=== PATIENT | female | born 1945 | race Caucasian/White ===

== ENCOUNTER 2019-07-26 15:22 | Outpatient (CLI) | payer MEDICARE, SELFPAY ==
--- NOTE | ~2019-07-26 | MM_ITS ---
EXAMINATION: MM screening emelina BI w yuly HISTORY: Screening mammogram TECHNIQUE: Craniocaudal and mediolateral oblique 3-D tomosynthesis images were obtained and synthetic 2-D images were generated. CAD analysis was submitted and interpreted. COMPARISON: 01/17/2018, 10/18/2016, 09/14/2015 bilateral digital screening mammogram examinations BREAST PARENCHYMAL COMPOSITION: The breasts are heterogeneously dense, which may obscure small masses . FINDINGS: There are scattered bilateral benign calcifications. There is no evidence of suspicious ma ss, calcification, or architectural distortion to suggest malignancy in either breast. There has been no suspicious interval change. IMPRESSION: 1. No mammographic evidence of malignancy. 2. Recommend routine screening mammography in one year. BI-RADS Category 2: Benign finding(s). Reviewed, dictated and finalized at location A.
== END 2019-07-26 15:23 | disposition home or self-care (01) ==
PROVIDERS: PCP Internal Medicine; Visit Provider Internal Medicine
DX: Z12.31 Encounter for screening mammogram for malignant neoplasm of breast (principal)
CPT/HCPCS: 77063; 77067

== ENCOUNTER 2019-10-11 08:31 | Emergency (ER) | payer MEDICARE, SELFPAY ==
--- NOTE | ~2019-10-11 | XR_ITS ---
EXAMINATION: XR hand RT min 3V DATE: 10/11/2019 08:58 INDICATION: Right hand swelling. TECHNIQUE: 3 views of right hand were obtained. COMPARISON: Right hand fourth digit radiographs 11/12/2013 FINDINGS: There is old fracture of scaphoid waist with nonunion. There is moderate osteoarthritis of lunate-capitate joint and distal radioulnar joint. There are loose bodies in the radiocarpal compartm ent. There is moderate osteoarthritis of triscaphe joint and severe osteoarthritis of first carpal me tacarpal joint. There is moderate osteoarthritis of second metacarpophalangeal joint and severe osteo arthritis of third metacarpophalangeal joint. There is mild osteoarthritis of fourth and fifth metaca rpophalangeal joints. There is severe osteoarthritis of most of the interphalangeal joints. IMPRESSION: 1. 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 2. Polyarticular osteoarthritis. 3. Loose bodies in the radiocarpal compartment. Reviewed, dictated and finalized at location B.
[2019-10-11 08:49] VITALS: BP 152/76; PULSE 79; RESP 18; TEMP 37; O2SAT 98
--- NOTE | 2019-10-11 08:55 | ED.UPPEXIN ---
HPI - Extremity Injury (Upper) General Chief Complaint: Extremity Injury, Upper Stated Complaint: Right Hand Pain Time Seen by Provider: 10/11/19 08:50 Source: patient Mode of arrival: ambulatory Limitations: no limitations History of Present Illness HPI narrative: Fidelina Jensen is a 74 yo female with a PMH of depression, high cholesterol, HTN, hypothyroid, seasonal allergies, who fell yesterday going down stairs and missed last step and fell hurting the R hand; mild swelling and bruising, able to move hand. 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 Related Data Home Medications Medication Instructions Recorded Confirmed escitalopram oxalate mg 10/11/19 fenofibrate mg 10/11/19 levothyroxine 10/11/19 meloxicam 10/11/19 metoprolol succinate PO 10/11/19 montelukast mg 10/11/19 simvastatin mg 10/11/19 triamterene-hydrochlorothiazid tablet 10/11/19 Allergies Allergy/AdvReac Type Severity Reaction Status Date / Time Penicillins Allergy Severe ITCHEY RASH Unverified 11/12/13 18:47 clindamycin Allergy Unknown Verified 09/03/18 11:20 erythromycin base Allergy Unknown Verified 09/03/18 11:21 gemifloxacin Allergy Unknown Verified 09/03/18 11:21 rosuvastatin Allergy Unknown Verified 09/03/18 11:20 Sulfa (Sulfonamide Allergy Unknown Verified 09/03/18 11:21 Antibiotics) valacyclovir Allergy Unknown Verified 09/03/18 11:21 EMYCIN Allergy Severe GI UPSET Uncoded 03/28/08 08:40 FACTIVE Allergy Severe HIVES Uncoded 03/28/08 08:40 Review of Systems Review of Systems: Narrative: CONSTITUTIONAL: Denies fever, chills, sweats. EYES: Denies visual changes, redness, discharge. ENT: Denies rhinorrhea, congestion, sore throat, otalgia. CARDIOVASCULAR: Denies chest pain, palpitations, edema. RESPIRATORY: Denies dyspnea, wheezing, cough GASTROINTESTINAL: Denies abdominal pain, nausea, vomiting, diarrhea. GENITOURINARY: Denies dysuria, hematuria, abnormal discharge SKIN: Denies rash or itching. NEUROLOGIC: Denies numbness, or focal weakness. PSYCHIATRIC: Denies anxiety or depression. Right hand pain and swelling after fall PMFSH Family History Family History Father Carcinoma of colon Mother Carcinoma of colon Other Diabetes mellitus Family history of allergic disorder Hypertension Social History Social History Smoking status: Never smoker Alcohol intake: never Comments At time of signature, I agree with nursing past medical, surgical, social and family history. There is no relevant family history pertinent to the presenting complaint. Exam Narrative: Exam Narrative: GENERAL: This is a well-nourished, well-developed patient, in mild distress. HEAD: normocephalic, atraumatic. EYES: PERRL. Sclera clear/white. Vision is grossly intact. EARS: External ears normal, a. Hearing grossly intact. NOSE: External nose normal without nasal discharge, nares without redness, no rhinorrhea. THROAT: Mucous membranes moist, NECK: Neck supple, CARDIOVASCULAR: Regular rate and rhythm without murmurs, gallops, or rubs. RESPIRATORY: Clear to auscultation. Breath sounds equal bilaterally. No wheezes, rales, or rhonchi. GASTROINTESTINAL: Abdomen soft, SKIN: warm, intact with no suspicious lesions or rash, good texture and turgor. NEURO: awake, alert, and oriented to person, place and time. There were no obvious focal neurologic abnormalities. Steady gait EXTREMITIES: Normal range of motion. Mild swelling in dorsum side right hand, mild ecchymosis, good finger opposition, good wrist flexion extension, intra-strength 5 /5 BACK: Nontender without deformity Course Course Emergency Course: X-ray right hand- results old scaphoid wrist fracture, polyarticular osteoarthritis and loose bodies in radiocarpal compartment with no acute fracture Vital Signs Vital signs: Vital Signs Temperature 98
== END 2019-10-11 09:22 | disposition home or self-care (01) ==
PROVIDERS: Emergency Provider Nurse Practitioner; PCP Internal Medicine
DX: S63.501A Unspecified sprain of right wrist, initial encounter (principal); S66.911A Strain of unspecified muscle, fascia and tendon at wrist and hand level, right hand, initial encounter; W10.9XXA Fall (on) (from) unspecified stairs and steps, initial encounter; F32.9 Major depressive disorder, single episode, unspecified; E78.00 Pure hypercholesterolemia, unspecified; I10 Essential (primary) hypertension; E03.9 Hypothyroidism, unspecified
CPT/HCPCS: 73130; 99213; G0463

== ENCOUNTER → 2020-05-20 14:39 | Outpatient (CLI) | payer MEDICARE, SELFPAY ==
--- NOTE | ~2020-05-20 | XR_ITS ---
XR hip RT min 2V DATE: 05/20/2020 16:32 INDICATION: Right hip pain TECHNIQUE: AP and lateral views of right hip COMPARISON: None FINDINGS: Diffuse osteopenia. No fracture or dislocation, avascular necrosis or bone destruction is evident. There is narrowing of the hip joint space consistent with osteoarthritis. IMPRESSION: Right hip osteoarthritic arthritis Osteopenia Reviewed, dictated and finalized at location B.
== END ==
PROVIDERS: PCP Internal Medicine; Visit Provider Internal Medicine
DX: M16.11 Unilateral primary osteoarthritis, right hip (principal); M85.851 Other specified disorders of bone density and structure, right thigh
CPT/HCPCS: 73502

== ENCOUNTER → 2021-05-03 11:32 | Outpatient (CLI) | payer MEDICARE, SELFPAY ==
--- NOTE | ~2021-05-03 | MM_ITS ---
EXAMINATION: MM screening emelina BI w yuly HISTORY: Screening TECHNIQUE: Craniocaudal and mediolateral oblique 3-D tomosynthesis images were obtained and synthetic 2-D images were generated. CAD analysis was submitted and interpreted. COMPARISON: Comparison to multiple prior studies sequentially, with oldest reviewed study dated 04/11. BREAST PARENCHYMAL COMPOSITION: The breasts are heterogenously dense, which may obscure small masses FINDINGS: There are benign bilateral breast calcifications many of which layer on the MLO views. Ther e is no evidence of suspicious mass, calcification, or architectural distortion to suggest malignancy in either breast. There has been no suspicious interval change. IMPRESSION: 1. No mammographic evidence of malignancy. 2. Recommend routine screening mammography in one year. BI-RADS Category 2: Benign finding(s). Reviewed, dictated and finalized at location A. IFICATION MANAGER
--- NOTE | ~2021-05-03 | US_ITS ---
. EXAMINATION: US renal BI DATE: 05/03/2021 12:02 INDICATION: Elevated serum creatinine. TECHNIQUE: Multiple ultrasound grayscale images of the kidneys were obtained. COMPARISON: None. FINDINGS: The right kidney measures 9.0 x 4.8 x 4.6 cm. The left kidney measures 12.1 x 6.3 x 5.3 cm. The kidne ys demonstrate normal parenchymal echogenicity. There is no hydronephrosis. The bladder is normal. IMPRESSION: 1. Normal kidneys. No hydronephrosis. Reviewed, dictated and finalized at location A. NG MACHINE TENDER CORK GASKET
== END ==
PROVIDERS: PCP Internal Medicine; Visit Provider Internal Medicine
DX: Z12.31 Encounter for screening mammogram for malignant neoplasm of breast (principal); R79.89 Other specified abnormal findings of blood chemistry
CPT/HCPCS: 76775; 77063; 77067

== ENCOUNTER 2021-12-13 10:04 | Outpatient (CLI) | payer MEDICARE, SELFPAY ==
--- NOTE | ~2021-12-13 | DEXA_ITS ---
Bone Density Report Name: JÚNIOR ROMERO Age: 76 Sex: Female Ethnicity: White Date of : 1945 Indication: postmenopausal; screening for osteoporosis; height loss; Referring Provider: MAGDA, MAGALI Paiz Study: Bone densitometry was performed. Exam Date: December 13, 2021 Accession number: [id number] Bone Density: Region BMD T-score Z-score Classification AP Spine(L1-L4) 1.212 1.5 3.9 Normal Femoral Neck (Left) 0.558 -2.6 -0.5 Osteoporosis Total Hip (Left) 0.780 -1.3 0.5 Osteopenia Femoral Neck (Right) 0.574 -2.5 -0.4 Osteoporosis Total Hip (Right) 0.765 -1.4 0.4 Osteopenia Total Hip Mean 0.773 -1.4 0.5 Osteopenia World Health Organization criteria for BMD impression classify patients as: Normal (T-score at or above -1.0), Osteopenia (T-score between -1.0 and -2.5), or Osteoporosis (T-score at or below -2.5). 10-year Fracture Risk: FRAX not reported because: Some T-score for Spine Total or Hip Total or Femoral Neck at or below -2.5 Clinical Information Provided by Patient: Has used the following medications: Vitamin D, Calcium Patient maximum height was 68 Menopause Age: 58 Drinks caffeinated beverages Onset of menses at age 13 Number of children 2 Impression: The patient has osteoporosis, based on the Left Femoral Neck T-score. Discussion: INCREASED RISK OF FRACTURE. BONE DENSITY IS UNDESIRABLY LOW AT ONE OR MORE SKELETAL SITES, CONSISTENT WITH POSTMENOPAUSAL OSTEOPOROSIS. This patient's lowest T-score meets the World Health Organization's (WHO) criteria for osteoporosis at one or more sites (T-score -2.5 or below). In untreated patients, the risk of osteoporotic fracture increases approximately two-fold for each 1.0 SD decrease in T-score. Low bone density is not the only risk factor for fracture; also consider factors such as patient's age, frailty or poor health, risk of falling, risk of injury, previous osteoporotic fracture, family history of osteoporosis, cigarette smoking, low body weight, etc. Not everyone with low bone mineral density has osteoporosis; osteomalacia and other metabolic bone disorders should also be considered. Patients who have osteoporosis should be evaluated for specific diseases and conditions (secondary causes) that may cause or contribute to bone loss. The [place] Association of Clinical Endocrinologists (AACE) and National Osteoporosis Foundation (NOF) recommend pharmacologic intervention for all postmenopausal women whose T-score is in this range. The patient should follow a healthful lifestyle (good nutrition with adequate calcium and vitamin D, and appropriate weight-bearing exercise). Follow-Up: Consider a repeat BMD and Vertebral Fracture Assessment (VFA) exam in 2 years or sooner if medically necessary, to reassess this patient's status.
== END 2021-12-13 10:05 | disposition home or self-care (01) ==
LOC: ANHIMG 10:05
PROVIDERS: PCP Internal Medicine; Visit Provider Nurse Practitioner Obstetrics & Gynecology
DX: Z78.0 Asymptomatic menopausal state (principal); M81.0 Age-related osteoporosis without current pathological fracture; M85.852 Other specified disorders of bone density and structure, left thigh; M85.851 Other specified disorders of bone density and structure, right thigh
CPT/HCPCS: 77080

== ENCOUNTER → 2022-01-04 10:53 | Outpatient (CLI) | payer MEDICARE, SELFPAY ==
--- NOTE | ~2022-01-04 | XR_ITS ---
EXAM: XR hand LT min 3V, XR hand RT min 3V DATE: 01/04/2022 11:38 (accession [id number]), 01/04/2022 11:39 (accession [id number]) HISTORY: no injury arthritis pain . COMPARISON: None available. FINDINGS: Decreased mineralization. No fracture or dislocation. No lytic or blastic lesion. Ulnar ne gative variance. Diffuse arthritic disease including erosive change in the joints of the hands and wr ists, severe in the DIP and PIP joints of the second and third digits as well as the left trapeziomet acarpal joint. Degenerative changes in the DRUJs bilaterally. Hooklike osteophyte at the right third MCP joint. Calcified loose body in the medial wrist joint recess. Nonunited old bilateral scaphoid fr actures. IMPRESSION: Polyarticular arthritic changes in the bilateral hands and wrists consistent with erosive osteoarthritis and posttraumatic changes. Reviewed, dictated and finalized at location K. SPRAYER IMPRESSION: Polyarticular arthritic changes in the bilateral hands and wrists c onsistent with erosive osteoarthritis and posttraumatic changes.
--- NOTE | ~2022-01-04 | CT_ITS ---
EXAMINATION: CTA chest PE protocol DATE: 01/04/2022 11:34 INDICATION: Dyspnea. Elevated d-dimer. Abnormal coagulation profile. TECHNIQUE: Computed tomography angiography (CTA) of the chest was performed with 100 mL Omnipaque-350 intravenous contrast timed to evaluate the pulmonary arteries. Coronal maximum intensity projection 3D-reconstructions were created by the technologist. Automated exposure control and iterative reconst ruction technique were employed. Exam dose: 601.81 mGy-cm total exam DLP. COMPARISON: 05/29/2017 two-view chest FINDINGS: There is diagnostic contrast enhancement of the pulmonary arteries and no evidence of pulmo nary embolism. No thoracic aortic aneurysm or dissection. No hilar or mediastinal mass lesion or lymphadenopathy. Heart size is within normal range. No pericardial or pleural effusion. Approximately 1 cm right adrenal mass, likely an adenoma. No pulmonary infiltrate or consolidation or pulmonary mass lesion. Prominent osteosclerotic lesion of L1 vertebral body, possibly a bone island. There is mild chronic l oss of height and anterior wedging T12. There is degenerative spurring of the lower cervical and thor acic spine. IMPRESSION: No evidence of pulmonary embolism Reviewed, dictated and finalized at Location A. Reviewed, dictated and finalized at location A. ING ENGINEER
--- NOTE | ~2022-01-04 | XR_ITS ---
EXAMINATION: XR chest 2V DATE: 01/04/2022 11:39 INDICATION: Dyspnea. TECHNIQUE: Frontal and lateral views of the chest were obtained. COMPARISON: Chest CT 12/04/2021 FINDINGS: There is no pneumonia, pleural effusion, or pneumothorax. Cardiomegaly is noted. There are prominent paracardial fat pads. There is an old healed right rib fracture. IMPRESSION: 1. Cardiomegaly. Reviewed, dictated and finalized at location A. BERRY BOG SUPERVISOR IMPRESSION: 1. Cardiomegaly.
[2022-01-04 11:24] LABS: Estimated Glomerular Filt Rate 54
== END ==
PROVIDERS: PCP Internal Medicine; Visit Provider Internal Medicine
DX: R79.1 Abnormal coagulation profile (principal); I51.7 Cardiomegaly; M19.041 Primary osteoarthritis, right hand; M19.042 Primary osteoarthritis, left hand
CPT/HCPCS: 71046; 71275; 73130; Q9967

== ENCOUNTER 2022-02-15 08:38 | Emergency (ER) | payer MEDICARE, SELFPAY ==
--- NOTE | ~2022-02-15 | XR_ITS ---
AP and oblique views of the left ribs, and PA and lateral views of the chest Clinical History: Pain COMPARISON: 01/04/2022 Findings: There is a mildly displaced right fracture of the anterolateral left sixth rib. Lungs are c lear, without focal consolidation or pleural effusion. No pneumothorax. Cardiomediastinal contour is within normal limits. Soft tissues are unremarkable. Impression: Left sixth rib fracture, as detailed above. Reviewed, dictated and finalized at location M. E STRIPPER Impression: Left sixth rib fracture, as detailed above.
[2022-02-15 08:56] VITALS: BP 127/69; PULSE 78; RESP 18; TEMP 37.1; O2SAT 99
--- NOTE | 2022-02-15 10:23 | PC.NURSE ---
Patient states she spoke to her PCP and was told they want to see her in office today since I would have to follow up with them anyway. Patient educated to return to ED if symptoms continue or worsen. Patient ambulated out of ED with steady gait.
== END 2022-02-15 10:23 | disposition left against medical advice (07) ==
LOC: ANHED 11:54
PROVIDERS: Emergency Provider Emergency Medicine; PCP Internal Medicine
DX: S29.9XXA Unspecified injury of thorax, initial encounter (principal); W10.9XXA Fall (on) (from) unspecified stairs and steps, initial encounter
CPT/HCPCS: 71046; 71100; 99199

== ENCOUNTER → 2022-02-25 16:10 | Outpatient (CLI) | payer MEDICARE, SELFPAY ==
--- NOTE | ~2022-02-25 | XR_ITS ---
EXAMINATION: XR hip RT min 2V DATE: 02/25/2022 16:31 INDICATION: Right hip pain. TECHNIQUE: 2 views of right hip were obtained. COMPARISON: Right hip radiographs 05/20/2020 FINDINGS: There are nondisplaced fractures of right superior and inferior pubic rami. There is severe right hip osteoarthritis. IMPRESSION: 1. Nondisplaced fractures of right superior and inferior pubic rami. 2. Severe right hip osteoarthritis. Reviewed, dictated and finalized at location A. 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
== END ==
PROVIDERS: PCP Internal Medicine; Visit Provider Internal Medicine
DX: M16.11 Unilateral primary osteoarthritis, right hip (principal); S32.591A Other specified fracture of right pubis, initial encounter for closed fracture; X58.XXXA Exposure to other specified factors, initial encounter
CPT/HCPCS: 73502

== ENCOUNTER 2022-06-05 15:58 | Emergency (ER) | payer MEDICARE, SELFPAY ==
--- NOTE | 2022-06-05 16:01 | ED.SKABFB ---
HPI - Skin/Abscess/Foreign Bdy General Chief complaint: Skin/Abscess/Foreign Body Stated complaint: rash Time Seen by Provider: 06/05/22 16:13 Source: patient and RN notes reviewed Mode of arrival: ambulatory Limitations: no limitations History of Present Illness HPI narrative: 77 year old female presents with concern for infection at a punch biopsy sight. She had a punch biopsy 10 days ago. She reports over the last couple of days the area surrounding the biopsy site has become red, swollen and tender. She denies drainage from the area. She denies fever, chills, aches, sweats. MD complaint: other (wound infection) Related Data Home Medications Medication Instructions Recorded Confirmed escitalopram oxalate 10 mg tablet mg 10/11/19 fenofibrate 54 mg tablet mg 10/11/19 levothyroxine 75 mcg tablet 10/11/19 meloxicam 7.5 mg tablet 10/11/19 metoprolol succinate 50 mg PO 10/11/19 tablet,extended release 24 hr montelukast 10 mg tablet mg 10/11/19 simvastatin 40 mg tablet mg 10/11/19 triamterene 75 tablet 10/11/19 mg-hydrochlorothiazide 50 mg tablet Calcium Magnesium 06/05/22 Flonase 06/05/22 Mucinex 06/05/22 Toprol XL 06/05/22 Zyrtec 06/05/22 ascorbate calcium (vitamin C) 06/05/22 aspirin 06/05/22 cholecalciferol (vitamin D3) 06/05/22 coQ10 (liposomal ubiquinol) 06/05/22 vitamin B complex 06/05/22 Allergies Allergy/AdvReac Type Severity Reaction Status Date / Time Penicillins Allergy Severe ITCHEY RASH Unverified 11/12/13 18:47 clindamycin Allergy Unknown Unknown Verified 06/05/22 16:02 erythromycin base Allergy Unknown Unknown Verified 06/05/22 16:02 gemifloxacin Allergy Unknown Unknown Verified 06/05/22 16:02 rosuvastatin Allergy Unknown Unknown Verified 06/05/22 16:02 Sulfa (Sulfonamide Allergy Unknown Unknown Verified 06/05/22 16:02 Antibiotics) valacyclovir Allergy Unknown Unknown Verified 06/05/22 16:02 EMYCIN Allergy Severe GI UPSET Uncoded 03/28/08 08:40 FACTIVE Allergy Severe HIVES Uncoded 03/28/08 08:40 Review of Systems Review of Systems: CONSTITUTIONAL: Denies malaise, chills, sweats, or fever. EYES: Denies redness, or discharge. ENT: Denies rhinorrhea, congestion, swollen lips, swollen tongue CARDIOVASCULAR: Denies chest pain, palpitations, or edema. RESPIRATORY: Denies cough or dyspnea. GASTROINTESTINAL: Denies abdominal pain, nausea, vomiting SKIN: Reports redness, tenderness, swelling surrounding a biopsy site on her left leg MUSCULOSKELETAL: Denies joint pain or myalgia. NEUROLOGIC: Denies headache. All systems reviewed & are unremarkable except as noted in HPI and below PMFSH Family History Family History Father Carcinoma of colon Mother Carcinoma of colon Other Diabetes mellitus Family history of allergic disorder Hypertension Social History Social History Smoking status: Never smoker Alcohol intake: never Comments At time of signature, agree with nursing past medical, surgical, social and family history. There is no relevant family history pertinent to the presenting complaint Exam Narrative: GENERAL: Well-appearing, well-nourished, and in no acute distress. HEAD: Normocephalic, atraumatic. EYES: PERRLA, conjunctivae clear ENT: Mucous membranes moist. NECK: Supple. No lymphadenopathy CHEST: Clear to auscultation. No respiratory distress. HEART: Regular rate and rhythm. SKIN: Warm, dry. Punch biopsy site noted to the left lower leg with a scab, the scab has surrounding erythema, mild induration of about 0.5 cm in diameter, tender to touch NEURO: Alert and oriented x3. PSYCH: Normal mood and affect Course Course Emergency Course: Patient is aware of diagnosis, understands and agrees to treatment plan. Anticipatory guidance given. Patient agrees to follow-up as directed and is aware of reasons to seek care at the [facility]
[2022-06-05 16:08] VITALS: BP 158/82; PULSE 73; RESP 16; TEMP 37.7; O2SAT 98
== END 2022-06-05 16:26 | disposition home or self-care (01) ==
PROVIDERS: Emergency Provider Nurse Practitioner; PCP Internal Medicine
DX: T81.49XA Infection following a procedure, other surgical site, initial encounter (principal); B99.9 Unspecified infectious disease
CPT/HCPCS: 99213; G0463

== ENCOUNTER → 2022-07-28 10:22 | Outpatient (CLI) | payer MEDICARE, SELFPAY ==
--- NOTE | ~2022-07-28 | MM_ITS ---
EXAMINATION: MM screening emelina BI w yuly HISTORY: Screening mammogram TECHNIQUE: Craniocaudal and mediolateral oblique 3-D tomosynthesis images were obtained and synthetic 2-D images were generated. CAD analysis was submitted and interpreted. COMPARISON: 05/03/2021, 07/26/2019, 01/17/2018 bilateral screening mammogram examinations BREAST PARENCHYMAL COMPOSITION: There are scattered areas of fibroglandular density. FINDINGS: Multiple scattered bilateral benign breast calcifications. There is no evidence of suspicio us mass, calcification, or architectural distortion to suggest malignancy in either breast. There has been no suspicious interval change. IMPRESSION: 1. No mammographic evidence of malignancy. 2. Recommend routine screening mammography in one year. BI-RADS Category 2: Benign finding(s). Reviewed, dictated and finalized at location A.
== END ==
PROVIDERS: PCP Internal Medicine; Visit Provider Internal Medicine
DX: Z12.31 Encounter for screening mammogram for malignant neoplasm of breast (principal)
CPT/HCPCS: 77063; 77067

== ENCOUNTER 2024-09-18 14:14 | Outpatient (CLI) | payer MEDICARE, SELFPAY ==
--- NOTE | ~2024-09-18 | MM_ITS ---
EXAMINATION: MM screening emelina BI w yluy HISTORY: Screening TECHNIQUE: Craniocaudal and mediolateral oblique 3-D tomosynthesis images were obtained and synthetic 2-D images were generated. CAD analysis was submitted and interpreted. COMPARISON: Comparison to multiple prior studies sequentially, with oldest reviewed study dated 03/16. BREAST PARENCHYMAL COMPOSITION: The breasts are heterogeneously dense, which may obscure small masses . FINDINGS: There is no evidence of suspicious mass, calcification, or architectural distortion to sug gest malignancy in either breast. Scattered benign-appearing calcifications are present. IMPRESSION: 1. No mammographic evidence of malignancy. 2. Recommend routine screening mammography in one year. BI-RADS Category 2: Benign finding(s). Reviewed, dictated and finalized at location B.
--- OUTSIDE RECORDS SUMMARY | 2024-09-18 14:26 | XMS_ITS | Continuity of Care Document ---
Author Organization [facility] Address [address] [place] [address] Phone Care Team Providers Care Autographer Name Role Phone Ayala OD, Bari Unavailable Unavailable Advance Directives Directive Yes / No Effective Date File Name No Information Encounters Encounter Description Practice Location Reason(s) For Visit Diagnoses Date Provider Providers Copied on Encounter [facility], [address], [place], [place], [id number], [place] tel:[phone] [facility] No Information 5-200 5 Ayala OD Bari. [address] , [address], [place], [address], [place]. tel:[phone] Family History Family Member Type Diagnosis Age At Onset No Information Payers Payer name Insurance type Covered green party ID Authoriza tion(s) No Information Social History [...]
--- OUTSIDE RECORDS SUMMARY | 2024-09-18 14:26 | XMS_ITS | Clinical Summary ---
Author Organization 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 Social History Tobacco Use Types Packs/Day Years Used Date Smoking Tobacco: Never Assessed Comments Unknown Sex and Gender Information Value Date Recorded Sex Assigned at Not on file Legal Sex Female 7:58 PM CDT Gender Identity Not on file Sexual Orientation Not on file Last Filed Vital Signs Vital Sign Reading Time Taken Comments Blood Pressure 143/82 06/13/2024 12:00 PM CDT Pulse 84 06/13/2024 12:00 PM CDT Temperature 36.7 C (98.1 F) 06/13/2024 12:00 PM CDT Respiratory Rate 20 06/13/2024 12:00 PM CDT Oxygen Saturation 99% 06/13/2024 12:00 PM CDT Inhaled Oxygen Concentration - - Weight 94.3 kg (208 lb) 01/05/2024 11:23 AM [employer] Height 167.6 cm (5' 6) 01/05/2024 11:23 AM [employer]EL[employer] Body Mass Index 33.57 01/05/2024 11:23 AM [employer]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 Plan of Treatment Upcoming Encounters Date Type Department Care Team (Late st Contact Info) Description 12/19/2024 11:00 AM CDT Treatment [facility] [address] None, Provider, Health Maintenance Due Date Last Done Comments Hepatitis C 02/25/1963 DTaP, Tdap and Td Vaccines (1 - Tdap) 1964 Annual Medicare Wellness Visit 2011 RSV Immunization or 60+ Years (1 - 1-dose 75+ series) 2021 COVID-19 Vaccine (4 - season) 2023 01/06/2021, 05/12/2020, 04/08/2020 Pneumococcal Vaccine: 50+ Years Completed 02/05/2019, 03/25/2014, 12/11/2012 Zoster Vaccines Completed 05/15/2019, 01/27, 03/13/2015, Additional history exists Dexa Scan (General) Completed 03/17/2020, 03/02/2018, 12/04/2017, Additional history exists RSV Immunizations Under 20 Months Aged Out 04/09/2023 No longer eligible based on patient's age to complete this topic Meningococcal B Vaccine Aged Out No l onger eligible based on patient's age to complete this topic Meningococcal Vaccine Aged Out No perfecto roger eligible based on patient's age to complete this topic Insurance Care Teams Doctor Of Nurse Anesthesia Practice Relationship Specialty Start Date End Date Cinthia Delgado MD PCP - General 06/01/10
--- OUTSIDE RECORDS SUMMARY | 2024-09-18 14:27 | XMS_ITS | Data Portability ---
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 Patient will come back in a year unless there are new symptoms. Not available 04/06/2021 11:24:27 Plan of Treatment Reminders Order Date Submit Date Provider Last Modified By Organization Details Last Modified Time Details Appointments None record ed. Lab None record ed. Referral None record ed. Procedures None record ed. Surgeries None record ed. Imaging None record ed. Medication Orders None record ed. Patient TargetsNo targets recorded. Patient InstructionsNo instructions recorded. Reason for Referral None Reported. Problems Name Problem SNOMED Code Status Onset Date Resolution Date Notes Provider Name and Address Organization Details Recorded Time Adult health examinat ion Completed 201104/05/2021 Routine Medical Exam;Karl rded Elsewhere : No Locati on: [facility]: EHR Chron ic: N Practic e ID: 0001 Bill able Time: 01:00:00 PM Vivian Charles horn [facility] 2 11:20:27 Speciali zed medical examinat ion Completed 201304/05/2021 Routine gynecolog ical examinati on;Practi ce ID: 0001 Vivian Charles horn [facility] 2 11:20:40 Screenin g for malignan t neoplasm of cervix Completed 201304/05/2021 Pap Smear;Pra ctice ID: 0001 Vivian horn [facility] 2 11:20:33 Screenin g for malignan t neoplasm of rectum Completed 201304/05/2021 Screening for malignant neoplasms of the rectum;Pr actice ID: 0001 Vivian horn [facility] 2 11:20:35 Blood leukocyt e number above referenc e range [id number] Completed 201504/05/2021 Elevated white blood cell count, unspecifi ed;Practi ce ID: 0001 Vivian Soto [facility] 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 2 11:20:38 Urinary tract infectio us disease [id number] Completed 201504/05/2021 UTI;Recor ded Elsewhere : No Locati on: [facility]: EHR Chron ic: N Practic e ID: 0001 Bill able Time: 08:30:00 AM Vivian horn [facility] 2 11:20:[address] Concept Completed 201604/05/2021 Encntr for general adult medical exam w/o abnormal findings; Practice ID: 0001 Vivian horn [facility] 2 11:20:37 Micturit ion finding Completed 201604/05/2021 Urinary incontine nce;Recor ded Elsewhere : No Locati on: [facility]: EHR Chron ic: N Practic e ID: 0001 Bill able Time: 08:30:00 AM Vivian horn [facility] 2 11:20:30 Acute vaginiti s [id number] Completed 201904/05/2021 Acute vaginitis ;Practice ID: 0001 [facility] 2 11:20:25 Problem Notes None recorded. Procedures Surgical History Date Name Laterality Status Provider Name and Address Organization Details Recorded Time 9 Most Recent Bone Density completed [facility] 04/06/2021 11:27:42 8 Date of Last Pap Smear completed [facility] 04/06/2021 11:26:28 6 Date of Last Mammogram completed [facility] 04/06/2021 11:29:01 2 Colonoscopy completed [facility] 04/06/2021 11:32:36 8 bursectomy of hand completed [facility] 04/06/2021 11:33:02 7 Colonoscopy completed [facility] 04/06/2021 11:32:32 replacement of bilateral knee joints completed [facility] 04/06/2021 11:32:21 Colonoscopy completed [facility] 04/06/2021 11:32:40 Imaging Results None recorded. Procedure Notes None recorded. Medical Equipment None Reported. Allergies Allergen ID Allergen Name Allergen Category Reaction Reaction Severity Criticality Documentation Date Start Date Code Code System Note Provider Name and Address Organization Details Recorded Time 11185 azithromy scott medicatio n Not available Not available Not available 02/14/2020 68917 RxNorm Comme nt: Locat [facility]; Not Available [facility] 0 14:14:49 54343 sulfameth oxazole medicatio n Not available Not available Not available 02/14/2020 93884 RxNorm Comme nt: Locat [facility]: [facility]; Not Available [facility] 0 14:14:49 93388 trimethop rim medicatio n Not available Not available Not available 02/14/2020 15843 RxNorm Comme nt: Locat ion: [facility]; Not Available [facility] 0 14:14:49 75782 erythromy scott medicatio n Not available Not available Not available 02/14/2020 4053 RxNorm Comme nt: Locat ion: [facility]; Not Available [facility] 0 14:14:49 53947 clindamyc in Not available Not available Not available Not available 02/14/2020 2582 RxNorm Comme nt: Locat ion: [facility]; Not Available [facility] 0 14:14:49 52716 Product containin g penicilli n (product) medicatio n Not available Not available Not available 02/14/2020 29463 8001 SNOMED Comme nt: Locat ion: [facility]; Not Available [facility] 0 14:14:49 Medications Name Sig Start Date Stop Date Status Note LastModified by Organization Details LastModified Time amoxicill in 500 mg capsule take 1 capsule by oral route every 12 hours 11/23 completed Prescrib ed Elsewher e: No Locat ion: Briseida vineet [facility] odify By: pool russell DateTime : 07/07/19 16 08:30:00 AM Not Available Not Available Not Available doxycycli ne hyclate 100 mg capsule TAKE 1 CAPSULE BY MOUTH TWICE DAILY active Not Available Not Available No t Available Toprol XL 25 mg tablet,ex tended release take 1 tablet by oral route every day active Prescrib ed Elsewher e: Yes Loca tion: Julissarima vineet [facility] odify By: shirley wheeler DateTime : 03/29/19 13 08:30:00 AM Not Available Not Available Not Available Celexa 10 mg tablet take 1 tablet by oral route every day 11/05 completed Prescrib ed Elsewher e: Yes Loca tion: Jose vineet [facility] odify By: shirley wheeler DateTime : 03/29/19 13 08:30:00 AM Not Available Not Available Not Available clindamyc in HCl 300 mg capsule take 1 capsule by oral route every 12 hours 03/15 completed Prescrib ed Elsewher e: No Locat ion: Jose manley [facility] odify By: anne ferreira DateTime : 02/28/19 19 11:09:12 AM Not Available Not Available Not Available azithromy scott 250 mg tablet 04/06 completed Not Available Not Available Not Available metoprolo l succinate ER 50 mg tablet,ex tended release 24 hr active Not Available Not Available Not Available triamtere ne 37.5 mg-hydroc hlorothia zide 25 mg capsule take 1 capsule by oral route every day active Prescrib ed Elsewher e: Yes Loca tion: Jose manley [facility] odify By: shirley wheeler DateTime : 03/29/19 13 08:30:00 AM Not Available Not Available Not Available levothyro xine 75 mcg tablet active Not Available Not Available Not Available Levoxyl 25 mcg tablet take 1 tablet by oral route every day 04/06 completed Prescrib ed Elsewher e: Yes Loca tion: Jose manley [facility] odify By: paige Sood nter DateTime : 02/14/20 11 07:20:07 PM Not Available Not Available Not Available simvastat in 5 mg tablet take 1 tablet by oral route every day in the evening active Prescrib ed Elsewher e: Yes Loca tion: Jose manley [facility] odify By: paige Sood nter DateTime : 02/14/20 11 07:20:07 PM Not Available Not Available Not Available triamtere ne 75 mg-hydroc hlorothia zide 50 mg tablet active Not Available Not Available No t Available azelastin e 137 mcg (0.1 %) nasal spray USE 2 SPRAYS IN EACH NOSTRIL TWICE DAILY active Not Available Not Available No t Available fluticaso ne propionat e 50 mcg/actua tion nasal spray,landy pension SHAKE LIQUID AND USE 1 SPRAY IN EACH NOSTRIL DAILY active Not Available Not Available No t Available Stanback Headache Powder 650 mg oral packet 03/29 completed Prescrib ed Elsewher e: Yes Loca tion: Jose manley [facility] odify By: shirley wheeler DateTime : 03/29/19 13 08:30:00 AM Not Available Not Available Not Available Vitamin C 500 mg capsule,e xtended release 03/29 completed Prescrib ed Elsewher e: Yes Loca tion: Jose manley [facility] odify By: shirley wheeler DateTime : 03/10/19 12 01:00:00 PM Not Available Not Available Not Available Vitamins and Minerals tablet 04/05 completed Prescrib ed Elsewher e: Yes Loca tion: Jose manley [facility] odify By: shirley wheeler DateTime : 03/29/19 13 08:30:00 AM Not Available Not Available Not Available Mucinex 600 mg tablet, extended release take 1 tablet by oral route every 12 hours as needed 04/05 completed Prescrib ed Elsewher e: Yes Loca tion: Jose manley [facility] odify By: shirley wheeler DateTime : 03/29/19 13 08:30:00 AM Not Available Not Available Not Available escitalop mahad 10 mg tablet active Not Available Not Available Not Available Lexapro 5 mg/5 mL oral solution take 10 millilit er by oral route every day 03/29 completed Prescrib ed Elsewher e: Yes Loca tion: Jose manley [facility] odify By: shirley wheeler DateTime : 03/10/19 12 01:00:00 PM Not Available Not Available Not Available Infuvite Adult 3300 unit-150 mcg/10 mL intraveno us solution 03/10 completed Prescrib ed Elsewher e: Yes Loca tion: Jose manley [facility] odify By: gladys russell DateTime : 02/14/20 11 07:20:07 PM Not Available Not Available Not Available Calcio Aung 500 mg tablet 04/05 completed Prescrib ed Elsewher e: Yes Loca tion: Jose manley [facility] odify By: paige Sood ntmohinder DateTime : 02/14/20 11 07:20:07 PM Not Available Not Available Not Available Vitamin D3 10 mcg (400 unit) capsule active Prescrib ed Elsewher e: Yes Loca tion: Jose manley [facility] odify By: shirley wheeler DateTime : 03/29/19 13 08:30:00 AM Not Available Not Available Not Available Mobic 7.5 mg/5 mL oral suspensio n take 5 millilit er by oral route every day active Prescrib ed Elsewher e: Yes Loca tion: Jose manley [facility] odify By: shirley wheeler DateTime : 03/29/19 13 08:30:00 AM Not Available Not Available Not Available B Complex 1.7 mg-20 mg-2 mg-1.2 mg/mL sublingua l liquid active Prescrib ed Elsewher e: Yes Loca tion: Jose manley [facility] odify By: paige tamez Encou nter DateTime : 02/14/20 11 07:20:07 PM Not Available Not Available Not Available CoQ-10 30 mg capsule active Prescrib ed Elsewher e: Yes Loca tion: Jose manley [facility] odify By: shirley wheeler DateTime : 03/29/19 13 08:30:00 AM Not Available Not Available Not Available Lipofen 50 mg capsule take 1 capsule by oral route every day with a meal active Prescrib ed Elsewher e: Yes Loca tion: Jose manley [facility] odify By: shirley wheeler DateTime : 03/29/19 13 08:30:00 AM Not Available Not Available Not Available Fish Oil 360 mg-1,200 mg capsule 11/23 completed Prescrib ed Elsewher e: Yes Loca tion: Jose manley [facility] odify By: pool Manley ncounter DateTime : 02/14/20 11 07:20:07 PM Not Available Not Available Not Available Zyrtec [address] by Topical route every USE ASS NEEDED WITH INTERCOU RSE active Prescrib ed Elsewher e: Yes Loca tion: Jose manley [facility] odify By: gladys Manley ncounter DateTime : 03/10/19 12 01:00:00 PM Not Available Not Available Not Available Vitals Date Recorded Body height Body mass index (BMI) Body weight Systolic And Diastolic Provider Name and Address Organization Details Last Updated DateTime 04/06/2021 165.1 cm 32.9 kg/m2 26547.29 g 140/80 mm[Hg] Vivian Soto [facility] 04/06/2021 11:25:03 Social History Question Answer Notes LastModified by Organizat ion Details LastModified Time Tobacco Smoking Status Never Smoker Vivian Soto [facility] 04/06/2021 11:25:19 Do You Have An Advance Directive? No Information not available 04/06/2021 Are You Blind Or Do You Have Difficulty Seeing? No Information not available 04/05/2021 What Is Your Level Of Caffeine Consumption? Heavy Information not available 04/06/2021 How Much Tobacco Do You Chew? None Information not available 04/06/2021 Have You Been To An Area Known To Be High Risk For COVID-19? No Information not available 04/06/2021 Are You Deaf Or Do You Have Serious Difficulty Hearing? No Information not available 04/05/2021 What Type Of Diet Are You Following? REGULAR Information not available 04/05/2021 What Is The Highest Grade Or Level Of School You Have Completed Or The Highest Degree You Have Received? [id number] Information not available 04/06/2021 Are There Any Guns Present In Your Home? No Information not available 04/06/2021 Do You Use Your Seat Belt Or Car Seat Routinely? Yes Information not available 04/05/2021 Do You Have Smoke And Carbon Monoxide Detectors In Your Home? Yes Information not available 04/05/2021 How Much Tobacco Do You Smoke? No Information not available 04/06/2021 Do You Use Sunscreen Routinely? Yes Information not available 04/05/2021 Have You Used IV Drugs? No Information not available 04/06/2021 Do You Have Difficulty Walking Or Climbing Stairs? Yes Information not available 04/06/2021 Sex: Unknown Functional Status Question Answer Note LastModified by Organizat ion Details LastModified Time Do you use any illicit or recreational drugs? No Information not available 04/05/2021 What is your level of alcohol consumption? Occasional Information not available 04/05/2021 Are you able to walk? YESASSIST Information not available 04/06/2021 Are you able to care for yourself? Yes Information n ot available 04/06/2021 What is your occupation? Retired Information not available 04/06/2021 Do you have difficulty dressing or bathing? No Information not available 04/06/2021 What is your exercise level? Occasional Information not available 04/05/2021 Mental Status Question Answer Note LastModified by Organization D etails LastModified Time Do you feel stressed (tense, restless, nervous, or anxious, or unable to sleep at night)? [id number] Information not available 04/05/2021 Family History Relationship Description Onset Age of this Age Resolved Age Notes LastModified by Organization Details LastModified Time Sister Disorder of thyroid gland Not available 2021 11:22:03 Sister Disorder of thyroid gland [email or web address] Not available 2021 10:40:44 Father Disorder of thyroid gland Not available 2021 11:22:19 Father Aortic aneurysm [email or web address] Not available 2021 10:40:44 Father Malignant tumor of colon Not available 2021 11:23:04 Father Hypertensive disorder Not available 2021 11:23:49 Father Hypercholest erolemia Not available 2021 11:24:18 Mother Malignant tumor of colon Not available 2021 11:23:10 Mother Hypertensive disorder Not available 2021 11:23:49 Mother Disorder of thyroid gland Not available 2021 11:23:59 Mother Hypercholest erolemia Not available 2021 11:24:18 Maternal Uncle Malignant tumor of colon Not available 2021 11:23:17 Maternal Grandfather Diabetes mellitus Not available 2021 11:24:36 Medical History Condition Response Allergies (Food, seasonal, environmental ) Y Other Y Arthritis Y High Cholesterol Y Thyroid Problems Y Hypertension Y Gynecological History Statement/Question Response If Post Menopausal, Age at Menopause 58 Date of Last Mammogram 09/14/2015 Most Recent Bone Density 02/28/2018 N Age of first menstrual cycle 13 HPV Vaccine N Date of Last Pap Smear 02/13/2018 Current Control Method Menopause Age at First Child 23 LMP Unknown N Obstetrics History GPAL:G 2 P 0 0 0 2 Type Value Living 2 Total 2 Past Encounters Encounter ID Performer Location Encounter Start Date Encounter Closed Date Diagnosis/Indication Diagnosis SNOMED-CT Code Diagnosis ICD10 Code Diagnosis Note [id number] Zoila Bridges , [facility] [address] [address] 04/06/2021 10:36:29 04/06/2021 12:23:17 Gynecologic examination 56956790 Z01.419 Take Calcium with Vitamin D 12-1500mg daily. Do monthly self breast exams. It is advised to get annual flu shot in the fall and she could obtain at [facility] or [facility] care clinic. If you haven't received the Tdap vaccine in the last 10 years you should obtain one as well. Have mammogram yearly, bone density every 2-3 years and colonoscop y every 5-10 years depending on findings and history. Engage in daily exercise of low impact aerobic exercise 45-60 minutes 4-5 times weekly. Avoid tobacco and illicit drugs as well as using moderation with alcohol intake less than 1-2 8 oz beverages daily. This lifestyle behavior pattern will lead to less health conditions and longer life span. If BMI greater than 25 weight watchers or dietary consult advised. Questions have been answered. Patient appears to understand instructio ns, but if you have any further questions call or respond to this email USPSTF recommends against screening for cervical cancer in women older than 65yo who have had adequate prior screening & are not otherwise at high risk for cervical cancer. Colon screen UTD PCPMammo ordered by PCPDexa OrderedRTO q2yrs or if any land conservation specialist problems ariseGenet ic screen discussedS TD declinedMo ther is in [facility] Health Concerns Section Related Observation LastModified by Organization Detai ls LastModified Time None Recorded Concern Status LastModified by Organization Details LastModified Time None Recorded Advance Directives Directive N: Payers Insurance Date Sequence Insurance Name Policy Number Policy Suarez Covered Member ID Suarez Member ID Guarantor Name 12/26/2023 1 ELAINA [id number] 1 Fidelina Jensen [id number] Fidelina Jensen Notes Date Note Type Note Provider Name and Address Organization Details Recorded Time 04/06/2021 text/html Annual Fruit Receiver Post-MenopausalRe ported bypatient.Menopau nancy Symptoms:no menopausal symptoms; normal vaginal lubrication Vaginal Bleeding:history of menopause having occurred; no history of post menopausal bleeding Urinary Symptoms:no hematuria; no incontinence; no nocturia; no urinary frequency Vulva:no genital lesion; no vulvar atrophy Vagina:normal vaginal discharge; no vaginal atrophy Breast:no breast lump; no nipple discharge; no breast pain Sexual Complaints:no sexual complaints Psychological Symptoms:no depression; no anxiety Preventive Measures:encourag e regular mammograms starting age 40; encourage self breast examination; encourage regular exercise; encourage no tobacco use; needs to schedule mammogram; history of recent colonoscopy; needs to schedule bone density WAYNE Curry- [address], [place], [address], [facility] 04/06/2021 12:09:02 OBGyn Episode Ob Episode Information Episode Created Date Number of Fetuses Patient Bloodtype Patient rh Status Prepregnancy Weight lbs Domestic Partner Domestic Partner Phone Father Name Computerized Table Cutter Status 04/06/19 22 1 CLOSED Fetus Data First Name Last Name Admitted to NICU Weight (g) Sex Living Outcome Pediatric Complications Fetus ID Race Codes Race Delivery Type M [id number] Vaginal Delivery Kvng Calculation Initial Kvng Date Initial Exam Date Initial Exam Provider Initial Ultrasound Date Last Menstrual Period Date Ultra Sound Weeks Gestation 0 Eighteen To Twenty Week Kvng Update Ultra Sound Date Fundal Height At Umbil Quickening Date Ultra Sound Latest Weeks Gestation Final Kvng Confirmed By Final Kvng Confirmed Date Final Kvng Date Ultra Sound Latest Days Gestation 0 0 Menstrual History Last Menstrual Date Menses Monthly On Bcp Conception Prior Menses Frequency Hcg Plus Date Menarche Onset Age Delivery Information Delivery Date Delivery Type Labor Anesthesia Weeks Gestation Incision Type Labor Labor Length Hrs Delivered By Post Complications Tubal Sterilization Discharge Date Comments 1 Discharge Information Feeding Method Contraceptive Method Maternal HG B and HCT Levels Ob Episode Information Episode Created Date Number of Fetuses Patient Bloodtype Patient rh Status Prepregnancy Weight lbs Domestic Partner Domestic Partner Phone Father Name Computerized Table Cutter Status 04/06/19 22 1 CLOSED Fetus Data First Name Last Name Admitted to NICU Weight (g) Sex Living Outcome Pediatric Complications Fetus ID Race Codes Race Delivery Type M [id number] Vaginal Delivery Kvng Calculation Initial Kvng Date Initial Exam Date Initial Exam Provider Initial Ultrasound Date Last Menstrual Period Date Ultra Sound Weeks Gestation 0 Eighteen To Twenty Week Kvng Update Ultra Sound Date Fundal Height At Umbil Quickening Date Ultra Sound Latest Weeks Gestation Final Kvng Confirmed By Final Kvng Confirmed Date Final Kvng Date Ultra Sound Latest Days Gestation 0 0 Menstrual History Last Menstrual Date Menses Monthly On Bcp Conception Prior Menses Frequency Hcg Plus Date Menarche Onset Age Delivery Information Delivery Date Delivery Type Labor Anesthesia Weeks Gestation Incision Type Labor Labor Length Hrs Delivered By Post Complications Tubal Sterilization Discharge Date Comments Discharge Information Feeding Method Contraceptive Method Maternal HG B and HCT Levels
--- OUTSIDE RECORDS SUMMARY | 2024-09-18 14:27 | XMS_ITS | Data Portability ---
Author Organization [facility] OFFICE Address [address] [place] [address] Care Team Providers Care Stain Applicator Name Role Phone JANUSZ KNOWLES Primary Care Provider [phone] Assessment Encounter Date Assessment Date Assessment LastModified by Organization Details LastModified Time 03/05/2018 03/05/2018 Discussed with patient findings, diagnosis, and prognosis. Discussed evaluation and treatment options including risks and benefits with patient, and patient expressed understanding. The following interventions were recommended: heart healthy low-fat, low-sodium diet, avoid strenuous exercise pending completion of cardiovascular evaluation, maintain appropriate weight, continue current medications, and medical follow-up as noted. [email or web address] Not available 03/05/2018 16:05:25 05/02/2018 05/02/2018 Discussed with patient findings, diagnosis, and prognosis. Discussed evaluation and treatment options including risks and benefits with patient, and patient expressed understanding. The following interventions were recommended: heart healthy low-fat, low-sodium diet, begin regular exercise, maintain appropriate weight, continue current medications, and medical follow-up as noted. [email or web address] Not available 05/02/2018 17:39:15 Plan of Treatment Reminders Order Date Submit Date Provider Last Modified By Organization Details Last Modified Time Details Appointments None record ed. Lab None record ed. Referral None record ed. Procedures None record ed. Surgeries None record ed. Imaging None record ed. Medication Orders None record ed. Patient TargetsNo targets recorded. Patient Instructions Encounter Date Encounter Id Patient Instructions Last Modified By Organization Details Last Modified Time 03/05/2018 [id number] Peripheral Arterial Disease (PAD): Care Instructions [email or web address] Not available 03/05/2018 16:09:55 high blood pressure: care instructions [email or web address] Not available 03/05/2018 16:09:55 learning about high blood pressure Not available 03/05/2018 16:09:55 hypothyroidism: care instructions [email or web address] Not available 03/05/2018 16:09:55 05/02/2018 [id number] sleep apnea: car e instructions [email or web address] Not available 05/02/2018 17:40:52 Peripheral Arterial Disease (PAD): Care Instructions [email or web address] Not available 05/02/2018 17:40:52 high blood pressure: care instructions [email or web address] Not available 05/02/2018 17:40:52 learning about high blood pressure [email or web address] Not available 05/02/2018 17:40:52 hypothyroidism: care instructions [email or web address] Not available 05/02/2018 17:40:52 Reason for Referral None Reported. Results Created Date Observation Date Name Description Value Unit Range Abnormal Flag Note LastModifiedBy Organization Detail LastModifiedTime 03/06/19 19 03/01/2018 XR, chest No observ ation record ed. [email or web address] Not Available 2018 09:31:34 03/06/19 19 03/01/2018 elect ryan diogr am No observ ation record ed. [email or web address] Not Available 2018 16:13:32 03/06/19 19 12/04/2012 thomas r monit or No observ ation record ed. [email or web address] Not Available 2018 16:15:38 03/07/19 19 03/06/2018 osiris can cardi olite stres s test (PROC ) No observ ation record ed. [email or web address] Not Available 2018 10:06:22 03/10/19 19 03/06/2018 , echoc ardio gram No observ ation record ed. [facility] [address], [place], [address], 03/30/2018 11:41:03 03/14/19 19 03/08/2018 CT, angio gram, chest , w/wo contr ast No observ ation record ed. [email or web address] Not Available 03/14 18:32:46 07/26/19 20 07/24/2019 US, echoc ardio gram No observ ation record ed. [email or web address] Not Available 07/27 18:25:38 08/12/19 20 07/24/2019 US, echoc ardio gram No observ ation record ed. [email or web address] Not Available 08/20 18:23:02 10/15/19 21 10/14/2020 US, echoc ardio gram No observ ation record ed. [facility] [address], [place], [address], 12/24/2020 18:56:38 02/10/2002/02/2022 US, echoc ardio gram No observ ation record ed. [email or web address] Not Available 2021 13:49:17 10/09/19 24 09/28/2023 (JESSY) ankle brach ial index * No observ ation record ed. [email or web address] Not Available 2023 11:38:33 Result Notes None recorded. Problems Name Problem SNOMED Code Status Onset Date Resolution Date Notes Provider Name and Address Organization Details Recorded Time Snoring 14398130 Active 2018 Yesy [place], [place] - [facility] 9 15:06:40 Anxiety 18491340 Active 2018 Yesy [place], [place] - [facility] 9 15:06:46 Hemorrhoids 79571117 Active 2018 Yesy [place], [place] - [facility] 9 15:06:59 Joint stiffness 91480615 Active 2018 Yesy horn [place] - [facility] 9 15:07:07 Pre-surgery evaluation Active 2018 Savage horn [place] - [facility] 9 15:43:17 Essential hypertension 65658025 Active 2018 [place] horn [place] - [facility] 9 15:43:27 Dyslipidemia 491942725 Active 2018 [place] horn [place] - [facility] 9 15:43:40 Hypothyroidism 51172547 Active 2018 [place] horn [place] - [facility] 9 15:43:59 Peripheral arterial occlusive disease 917133539 Active 2018 Savage Navarro [facility] 9 15:50:38 Dyspnea on exertion 72214637 Active 2018 Savage Navarro [facility] 9 16:00:10 Obstructive sleep apnea syndrome 45390759 Active 2018 Savage Navarro [facility] 9 17:32:58 Problem Notes None recorded. Procedures Surgical History Date Name Laterality Status Provider Name and Address Organization Details Recorded Time arthroscopy completed Yesy Kirshnan [facility] 03/05/2018 15:10:33 procedure on hip completed Yesy Krishnan [facility] 03/05/2018 15:11:25 Imaging Results None recorded. Procedure Notes None recorded. Medical Equipment None Reported. Allergies Allergen ID Allergen Name Allergen Category Reaction Reaction Severity Criticality Documentation Date Start Date Code Code System Note Provider Name and Address Organization Details Recorded Time 7427 clindamyc in Not available Not available Not available Not available 03/05/2018 2582 RxNorm Yesy Krishnan [facility] 9 14:52:06 7428 Crestor medicatio n Not available Not available Not available 03/05/2018 73355 4 RxNorm Yesy Beanr [facility] 9 14:56:01 7429 erythromy scott medicatio n Not available Not available Not available 03/05/2018 4053 RxNorm Yesy Krishnan [facility] 9 14:56:09 7430 Factive medicatio n Not available Not available Not available 03/05/2018 32301 5 RxNorm Yesy Krishnan [facility] 9 14:56:19 7431 Substance with sulfonami de structure and antibacte rial mechanism of action (substanc e) medicatio n Not available Not available Not available 03/05/2018 55129 8003 SNOMED Yesy Krishnan [facility] 9 14:56:29 7432 Valtrex medicatio n Not available Not available Not available 03/05/2018 75033 0 RxNorm Yesy Ariella [facility] [place] - [facility] 14:56:36 7433 Product containin g penicilli n (product) medicatio n Not available Not available Not available 03/05/2018 77594 8001 SNOMED Yesy Krishnan [facility], [facility] 14:56:43 Medications Name Sig Start Date Stop Date Status Note LastModified by Organization Details LastModified Time clindamyci n HCl 300 mg capsule 03/05 completed error;a l 03/05/18 Not Available Not Available Not Available aspirin 325 mg tablet Take 1 tablet every day by oral route as directed . active Pt take 1 tab 325 mg every 24 hours . 9 : MA Not Available Not Available Not Available metoprolol succinate ER 50 mg tablet,ext ended release 24 hr Take 1 tablet every day by oral route as directed . active Pt take 1 tab 50 mg every 24 hours . 9 : MA Not Available Not Available Not Available Zyrtec 10 mg tablet Take 1 tablet every day by oral route as needed. active Pt take 1 tab 10 mg every 24 hours . 9 : MA Not Available Not Available Not Available simvastati n 40 mg tablet Take 1 tablet every day by oral route as directed . active Pt take 1 tab 40 mg every 24 hours . 9 : MA Not Available Not Available Not Available levothyrox ine 75 mcg tablet Take 1 tablet every day by oral route as directed . active Pt take 1 tab 75 mcg every 24 hours . 9 : MA Not Available Not Available Not Available meloxicam 7.5 mg tablet Take 1 tablet every day by oral route as directed . active Pt take 1 tab 75 mg every 24 hours . 9 : MA Not Available Not Available Not Available Vitamin C 1,000 mg tablet Take 1 tablet every day by oral route as directed . active Pt take 1 tab 1000 mg every 24 hours . 9 : MA Not Available Not Available Not Available hydrocodon e 7.5 mg-acetami nophen 325 mg tablet active No longer take it . 9 : MA Not Available Not Available Not Available cephalexin 500 mg capsule active No longer take it . 9 : MA Not Available Not Available Not Available triamteren e 75 mg-hydroch lorothiazi de 50 mg tablet 05/02 completed Pt take 1 tab 75 mg every 24 hours . 9 : MA Not Available Not Available Not Available Triamteren e W/Hctz 75 mg-50 mg tablet Take 0.5 tablets every day by oral route as directed . active Pt take 1/2 tab 75 mg every 24 hours . 9 : MA Not Available Not Available Not Available escitalopr am 10 mg tablet Take 1 tablet every day by oral route as directed . active Pt take 1 tab 10 mg every 24 hours . 9 : MA Not Available Not Available Not Available vitamin B complex 1 TAB BY MOUTH DAILY active Pt take 1 tab every 24 hours . 9 : MA Not Available Not Available Not Available Calcium/Ma gnesium Formula 600 MG 2 TABS QD BY MOUTH active Pt take 2 tab 600 mg every 24 hours . 9 : MA Not Available Not Available Not Available Vitamin D3 25,000 IU ONCE A WEEK active Pt take 1 tab 99992 mg every week . 9 : MA Not Available Not Available Not Available Mucinex 1 TAB BY MOUTH DAILY PRN active Pt take 1 tab every 24 hours . 9 : MA Not Available Not Available Not Available CoQ-10 100 mg capsule Take 1 capsule every day by oral route as directed . active Pt take 1 cap 100 mg every 24 hours . 9 : MA Not Available Not Available Not Available fenofibrat e 50 mg capsule Take 1 capsule every day by oral route as directed . 05/02 completed No longer take it , But Pt take 1 tab 54 mg every 24 hours . 9 : MA Not Available Not Available Not Available fenofibrat e 54 mg tablet active Pt take 1 tab 54 mg every 24 hours . 9 : MA Not Available Not Available Not Available Probiotic 1 TAB BY MOUTH DAILY active Pt take 1 cap every 24 hours . 9 : MA Not Available Not Available Not Available Xarelto 10 mg tablet 05/02 completed No longer take it 9 : MA Not Available Not Available Not Available Multi Vitamin 1 TAB BY MOUTH DAILY active Pt take 1 tab every 24 hours . 9 : MA Not Available Not Available Not Available Nasacort 55 mcg nasal spray aerosol Take 1 spray every day by nasal route as needed. active Pt take 1 spray each nos As needed . 9 : MA Not Available Not Available Not Available Vitals Date Recorded Body weight Body mass index (BMI) Body height Oxygen saturation Oxygen saturation in Arterial blood by Pulse oximetry Heart rate Systolic And Diastolic Provider Name and Address Organization Details Last Updated DateTime 9 33532.6 6 g 33.6 kg/m2 165.1 cm 95 % 95 % 77 /min 148/88 mm[Hg] [facility] 9 15:01:52 Date Recorded Body height Body mass index (BMI) Body weight Heart rate Oxygen saturation Oxygen saturation in Arterial blood by Pulse oximetry Systolic And Diastolic Systolic And Diastolic Provider Name and Address Organization Details Last Updated DateTime 9 165.1 cm 32.5 kg/m2 88856.6 7 g 77 /min 96 % 96 % 148/88 mm[Hg] 142/82 mm[Hg] [facility] 9 16:53:56 Social History Question Answer Notes LastModified by Organizat ion Details LastModified Time Tobacco Smoking Status [facility] 15:07:59 What Is Your Level Of Caffeine Consumption? Occasional Information not available 03/05/2018 How Much Tobacco Do You Chew? None Information not available 03/05/2018 What Type Of Diet Are You Following? REGULAR Information not available 03/05/2018 Which Illicit Or Recreational Drugs Have You Used? NO Information not available 03/05/2018 Live Alone Or With Others? With Others Information not available 03/05/2018 Marital Status Informatio n not available 03/05/2018 What Was The Date Of Your Most Recent Tobacco Screening? 03/05/2018 Information not available 09/20/2018 How Much Tobacco Do You Smoke? No Information not available 03/05/2018 Sex: Unknown Functional Status Question Answer Note LastModified by Organization D etails LastModified Time What is your level of alcohol consumption? None Information not available 03/05/2018 What is your occupation? RETIRED Information not available 03/05/2018 What is your exercise level? None Information not available 03/05/2018 Mental Status None recorded. Family History Relationship Description Onset Age of this Age Resolved Age Notes LastModified by Organization Details LastModified Time Mother Diabetes mellitus [email or web address] Not available 2018 15:07:19 Mother Hypertensive disorder [email or web address] Not available 2018 15:07:39 Mother Hyperlipidem ia [email or web address] Not available 2018 15:07:53 Maternal Grandmother Diabetes mellitus [email or web address] Not available 2018 15:07:27 Father Hypertensive disorder [email or web address] Not available 2018 15:07:39 Father Hyperlipidem ia [email or web address] Not available 2018 15:07:53 Medical History Condition Response Hyperlipidemia Y Hypertension Y Gynecological HistoryNo gynecological history recorded. Obstetrics History GPAL:G 0 P 0 0 0 0 Past Encounters Encounter ID Performer Location Encounter Start Date Encounter Closed Date Diagnosis/Indication Diagnosis SNOMED-CT Code Diagnosis ICD10 Code Diagnosis Note [id number] Savage Navarro MD [facility] OFFICE [address] [place] [address] 03/05/2018 14:26:07 03/05/2018 16:10:13 Essential hypertension 33980861 I10 Patient's blood pressure is somewhat well-contr olled on present medical therapy. Patient is tolerating , without difficulty , the current medication s. I have not made changes to the current regimen. Patient is advised to maintain a blood pressure diary. Patient was advised to eat a low-sodium diet (2 grams sodium or less daily). BP monitor. Dyslipidemia 881629667 E 78.5 Obtain FLP results per PCP. Hypothyroidism 39215773 E03.9 Obtain TSH per PCP. Pre-surger y evaluation 200370255 Z01.818 Continue metoprolol and statin in cortney-opera tive period. Patient presents with dyspnea on exertion with abnormal ECG and some peripheral arterial disease. Given the history, exam findings and high cardiac risk factors, I feel additional investigat ion is warranted. I have made arrangemen ts in the near future for a pharmacolo gic Lexiscan stress nuclear test due to reduced functional capacity or conduction abnormalit y. The procedure was discussed with the patient, and risks, benefits, and alternativ e options were explained. Appropriat e labwork has been performed recently, therefore I have not made arrangemen ts for further testing. I have asked the patient to curtail exercise and activities until our investigat ion is complete. I have made no adjustment s to the present medical regimen. Peripheral arterial occlusive disease 514844669 I73.9 Mild. No claudicati on but with cellulitis 08/2017 left leg. Had 12/20/17 JESSY ; Abnormal ankle-brac hial index. Mild peripheral arterial disease of the right lower extremity. Mild peripheral arterial disease of the left lower extremity. Obtain LE arterial Duplex following recovery from knee surgery. Dyspnea on exertion 6084 5006 R06.09 Has exertional dyspnea which can be an anginal equivalent . Obtain Lexiscan as above. Obtain echo to evaluate for structural /functiona l disease. [id number] Savage Navarro MD [address] [address] 05/02/2018 15:44:23 05/02/2018 17:41:11 Pre-surgery evaluation 495674007 Z01.818 Continue metoprolol and statin in cortney-opera tive period for R TKA 05/18/18. Had cardiac CTA done in 03/08/18 showed No significan t coronary artery disease. Had ECHO done in 03/06/18 showed normal global systolic function, mild mitral regurgitat ion, mild tricuspid regurgitat ion. Dyspnea on exertion 6084 5006 R06.09 Stable. Had cardiac CTA done in 03/08/18 showed No significan t coronary artery disease. Had ECHO done in 03/06/18 showed normal global systolic function, mild mitral regurgitat ion, mild tricuspid regurgitat ion. Essential hypertension 60553001 I10 Mild LVH. Patient's blood pressure is somewhat well-contr olled on present medical therapy. Patient is tolerating , without difficulty , the current medication s. I have not made changes to the current regimen. Patient is advised to maintain a blood pressure diary. Patient was advised to eat a low-sodium diet (2 grams sodium or less daily). BP monitor. Dyslipidemia 308456897 E 78.5 Obtain FLP. Hypothyroidism 36738472 E03.9 Obtain TSH. Peripheral arterial occlusive disease 271090723 I73.9 Mild. No claudicati on but with cellulitis 08/2017 left leg. Had 12/20/17 JESSY ; Abnormal ankle-brac hial index. Mild peripheral arterial disease of the right lower extremity. Mild peripheral arterial disease of the left lower extremity. Obtain LE arterial Duplex following recovery from knee surgery. Obstructiv e sleep apnea syndrome 63757931 G47.33 Reports snoring, occasional fatigue. has mild pulm HTN. Obtain home sleep study. Health Concerns Section Related Observation LastModified by Organization Detai ls LastModified Time None Recorded Concern Status LastModified by Organization Details LastModified Time None Recorded Advance Directives Directive None Recorded Payers Insurance Date Sequence Insurance Name Policy Number Policy Suarez Covered Member ID Suarez Member ID Guarantor Name 04/29/2018 1 [employer] (MEDICARE REPLACEMENT/ ADVANTAGE - PPO) [id number] Fidelina Jensen [id number] Notes Date Note Type Note Provider Name and Address Organization Details Recorded Time 03/05/2018 text/html 03/05/17 cc: presurgery evaluation 73 year-old woman with history of peripheral arterial disease, hypertension, dyslipidemia, obesity, hypothyroidism (followed by PCP), anxiety, presents for cardiac consultation with a chief complaint of needing pre-surgery evaluation. No known history of coronary artery disease. No history of previous myocardial infarction. No history of heart failure. No known valvular heart disease. History of arrhythmia reported with irregular rhythm on clindamycin which resolved off clindamycin. Patient reports feeling well overall. Patient is active, exercising regularly. Does strength training mainly; minimal cardio. No chest pain. No arm pain. No neck pain. No nausea and vomiting. No diaphoresis. No shortness of breath at rest. Dyspnea on exertion reported. Fatigue reported.No orthopnea. No PND. Leg swelling reported, intermittent. No palpitation. No dizziness. No syncope . No pre-syncope. No claudication. No major bleeding events. No side effects from medications. Complete ROS negative except as stated in the HPI and ROS. Had HOLTER: 12/04/12 Frequent PVC's. Otherwise unremarkable holter monitor. Had EK03/01/[address] and T wave abnormality. Abnormal ECG. Reports snoring, occasional fatigue. Feels refreshed in AM and no daytime somnolence. Results from this visit, or from the past: 03/01/18: Cr 1.00, HOLTER: 12/04/12 Frequent PVC's. Otherwise unremarkable Holter monitor. EK03/01/[address] and T wave abnormality. Abnormal ECG. Savage horn [facility] 03/05/2018 16:10:11 05/02/2018 text/html 05/02/18 cc: presurgery evaluation 73 year-old woman with history of peripheral arterial disease, hypertension, LVH, dyslipidemia, obesity, hypothyroidism (followed by PCP), anxiety, presents for cardiac consultation with a chief complaint of needing pre-surgery evaluation. Had L TKA 03/09/18 without problem. No known history of coronary artery disease. No history of previous myocardial infarction. No history of heart failure. No known valvular heart disease. History of arrhythmia reported with irregular rhythm on clindamycin which resolved off clindamycin. Patient reports feeling well overall. Patient is active, exercising regularly. Does strength training mainly; minimal cardio. No chest pain. No arm pain. No neck pain. No nausea and vomiting. No diaphoresis. No shortness of breath at rest. Dyspnea on exertion reported, improved. Fatigue reported.No orthopnea. No PND. Leg swelling reported, intermittent, improved. No palpitation. No dizziness. No syncope . No pre-syncope. No claudication. No major bleeding events. No side effects from medications. Complete ROS negative except as stated in the HPI and ROS. Had HOLTER: 12/04/12 Frequent PVC's. Otherwise unremarkable holter monitor. Had EK03/01/[address] and T wave abnormality. Abnormal ECG. Reports snoring, occasional fatigue. Feels refreshed in AM and no daytime somnolence. Had cardiac CTA done in 03/08/18 showed No significant coronary artery disease. Had ECHO done in 03/06/18 showed normal global systolic function, mild mitral regurgitation, mild tricuspid regurgitation. Results from this visit, or from the past: 03/01/18: PT 10.7, INR 1.0 03/01/18: Na 142, K 4.0 ,CL 103 ,CO2 31 ,GLU 99, BUN 20 ,CR 1.0,03/01/18: HB 12.4, HT 39.5 03/01/18: Cr 1.00, 03/08/18 CTA: No significant coronary artery disease. EK03/01/[address] and T wave abnormality. Abnormal ECG. 03/01/18 CHEST 2 VIEW: Cardiomegaly without evidence of acute intra-thoracic process. 12/20/17 JESSY ; Abnormal ankle-brachial index. Mild peripheral arterial disease of the right lower extremity. Mild peripheral arterial disease of the left lower extremity. CHI 03/06/18-Adequate Stress with Lexiscan. Positive Lexiscan stress test for ischemia. Reversible defect consistent with ischemia in apical septal area. Normal LV systolic function. Abnormal stress test. No previous study to compare. holter monitor 12-04-2012 Frequent premature ventricular contractions. Otherwise unremarkable holter monitor. 03/06/18 ECHO: LV chamber size is normal. LV wall thickness is mildly increased. There is normal global systolic function and contractility. RV size is mildly dilated. There is mild mitral regurgitation. There is mild tricuspid regurgitation. The estimated RV systolic pressure is 39 mmHg. ARVIND [facility] - [facility] 05/02/2018 17:41:09 OBGyn Episode No OBEpisode recorded.
--- OUTSIDE RECORDS SUMMARY | 2024-09-18 14:27 | XMS_ITS | Encounter Summary ---
Author Organization [facility] Address [address] [place] [address] Care Team Providers Care Credit Front Office Developer Name Role Phone Cinthia Delgado MD Primary Care Provider [phone] Encounter Details Date Type Department Care Team (Late st Contact Info) Description 05/06/2022 Therapy Plan [facility] [place] [address] Cinthia Delgado [facility] [address] [facility] [address] [place] [address] Social History Tobacco Use Types Packs/Day Years Used Date Smoking Tobacco: Never Assessed Comments Unknown Sex and Gender Information Value Date Recorded Sex Assigned at Not on file Legal Sex Female 7:58 PM CDT Gender Identity Not on file Sexual Orientation Not on file documented as of this encounter Plan of Treatment Upcoming Encounters Date Type Department Care Team (Late st Contact Info) Description 12/19/2024 11:00 AM CDT Treatment [facility] [place] [address] None, ProviderMD documented as of this encounter Visit Diagnoses Diagnosis Senile osteoporosis- Primary Senile osteoporosis- Primary documented in this encounter Care Teams Credit Front Office Developer Relationship Specialty Start Date End Date Cinthia Delgado MD PCP - General 06/01/10 documented as of this encounter
== END 2024-09-18 14:15 | disposition home or self-care (01) ==
LOC: ANHIMG 14:17
PROVIDERS: PCP Internal Medicine; Visit Provider Internal Medicine
DX: Z12.31 Encounter for screening mammogram for malignant neoplasm of breast (principal)
CPT/HCPCS: 77063; 77067

== ENCOUNTER 2024-11-25 14:55 | Outpatient (CLI) | payer MEDICARE, SELFPAY ==
--- OUTSIDE RECORDS SUMMARY | 2004-04-13 11:15 | XMS_ITS | Continuity of Care Document ---
Author Organization [facility] Address [address] [place] [address] Phone Care Team Providers Care It Applications Manager Name Role Phone Ayala OD, Bari Unavailable Unavailable Advance Directives Directive Yes / No Effective Date File Name No Information Encounters Encounter Description Practice Location Reason(s) For Visit Diagnoses Date Provider Providers Copied on Encounter [facility], [address], [place], [place], [id number], [place] tel:[phone] [facility] No Information 5-200 5 Ayala OD Bari. [address] , [address], [place], [address], [place]. tel:[phone] Family History Family Member Type Diagnosis Age At Onset No Information Payers Payer name Insurance type Covered libertarian ID Authoriza tion(s) No Information Social History Type Description Quantity Date Captured Comments Sex Female Smoking Status No Information Chief Complaint And Reason For Visit No Information Reason For Referral Reason For Referral No Information History Of Present Illness Encounter Date Complaint History Of Prese nt Illness No Information Functional Status Date Functional Assessmen t No Information Instructions Date Instruction Additional Infor mation No Information Assessments Type Assessment Date No Information Patient Care Teams Name Effective Dates (start - stop) Status Members No Information
--- NOTE | ~2024-11-25 | DEXA_ITS ---
Bone Density Report Name: JÚNIOR ROMERO Age: 79 Sex: Female Ethnicity: White Date of : 1945 Indication: osteopenia; monitoring treatment; parental hip fracture; height loss; secondary osteoporosis; Referring Provider: ELENI, JANUSZ Study: Bone densitometry was performed. Exam Date: November 25, 2024 Accession number: [id number] Bone Density: Region BMD T-score Z-score Classification AP Spine(L1-L4) 1.275 2.1 4.7 Normal Femoral Neck (Left) 0.576 -2.5 -0.2 Osteoporosis Total Hip (Left) 0.836 -0.9 1.1 Normal Femoral Neck (Right) 0.658 -1.7 0.5 Osteopenia Total Hip (Right) 0.872 -0.6 1.4 Normal Total Hip Mean 0.854 -0.8 1.3 Normal World Health Organization criteria for BMD impression classify patients as: Normal (T-score at or above -1.0), Osteopenia (T-score between -1.0 and -2.5), or Osteoporosis (T-score at or below -2.5). 10-year Fracture Risk: FRAX not reported because: Some T-score for Spine Total or Hip Total or Femoral Neck at or below -2.5 Treated for osteoporosis Previous Exams: Region Exam Age BMD T-score BMD Change BMD Change Date g/cm2 vs Baseline vs Previous AP Spine (L1-L4) 11/25/2024 79 1.275 2.1 0.062 (5.1%)* 0.062 (5.1%)* 12/13/2021 76 1.212 1.5 Total Hip(Left) 11/25/2024 79 0.836 -0.9 0.056 (7.1%)* 0.056 (7.1%)* 12/13/2021 76 0.780 -1.3 Total Hip(Right) 11/25/2024 79 0.872 -0.6 0.107 (13.9%)* 0.107 (13.9%)* 12/13/2021 76 0.765 -1.4 *Denotes significance at 95% confidence level, LSC for AP Spine = 0.022 g/cm2, LSC for Total Hip = 0.027 g/cm2 Clinical Information Provided by Patient: Parent has had a hip fracture Has secondary osteoporosis Is being treated for osteoporosis Has used the following medications: Vitamin D, Calcium Has the following medical conditions: esthela Patient maximum height was 68 Menopause Age: 58 Drinks caffeinated beverages Onset of menses at age 13 Number of children 2 Impression: The patient has osteoporosis, based on the Left Femoral Neck T-score. The patient has risk factors, including: parental hip fracture. No significant bone loss was observed. Discussion: PATIENT UNDER TREATMENT WITH NO SIGNIFICANT BMD LOSS SINCE LAST EXAM. In an untreated patient, BMD typically declines with age. A lack of decline or gain is usually a sign that treatment is efficacious and fracture risk is reduced. It is important to ask patients whether they are taking their medications and to encourage continued and appropriate compliance with their osteoporosis therapies to reduce fracture risk. It is also important to review their risk factors and encourage appropriate calcium and vitamin D intakes, exercise, fall prevention and other lifestyle measures. Follow-Up: Consider a repeat BMD and Vertebral Fracture Assessment (VFA) exam in 2 years or sooner if medically necessary, to reassess this patient's status. Reported by: KENNETH on 11/25/2024 3:40:00 PM. Reviewed, dictated and finalized at location A.
--- OUTSIDE RECORDS SUMMARY | 2024-11-25 15:49 | XMS_ITS | Clinical Summary ---
Author Organization [facility] Address [address] [place] [address] Care Team Providers Care Concrete Bucket Hooker Name Role Phone Cinthia Delgado MD Primary Care Provider [phone] Allergies Active Allergy Reactions Criticality Noted Date [...] 94.3 kg (208 lb) 01/05/2024 11:23 AM INTERN RETAIL Height 167.6 cm (5' 6) 01/05/2024 11:23 AM INTERN RETAIL Body Mass Index 33.57 01/05/2024 11:23 AM INTERN RETAIL Plan of Treatment Upcoming Encounters Date Type Department Care Team (Late st Contact Info) Description 12/19/2024 11:00 AM CDT Treatment [facility], [address] [phone] None, Provider, Health Maintenance Due Date Last Done Comments Hepatitis C 02/25/1963 DTaP, Tdap and Td Vaccines (1 - Tdap) 1965 Annual Medicare Wellness Visit 2011 RSV Immunization or 60+ Years (1 - 1-dose 75+ series) 2021 COVID-19 Vaccine ( - season) 2024 01/06/2021, 05/12/2020, 04/08/2020 Pneumococcal Vaccine: 50+ Years [...] to complete this topic Insurance Care Teams Concrete Bucket Hooker Relationship Specialty Start Date End Date Cinthia Delgado MD PCP - General 06/01/10
--- OUTSIDE RECORDS SUMMARY | 2024-11-25 15:49 | XMS_ITS | Data Portability ---
Author Organization [facility] [place] Address [address] [place] [address] Care Team Providers Care Boiler Welder Name Role Phone ELENI TANYADEBRABHARATHI Primary Care [...] Exam;Karl rded Elsewhere : No Locati on: [facility] So urce: EHR Chron ic: N Practic e ID: [id number] Bill able Time: 01:00:00 PM Vivian horn [facility], [...] leukocyt e number above referenc e range [id number] Completed 201504/05/2021 Elevated white blood cell count, unspecifi ed;Practi ce ID: [id number] [facility] 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 2 11:20:38 Urinary tract infectio us disease [id number] Completed 201504/05/2021 UTI;Recor ded Elsewhere : No Locati on: [facility] So urce: EHR Chron ic: N Practic [...] nce;Recor ded Elsewhere : No Locati on: [facility] So urce: EHR Chron ic: N Practic e ID: [id number] Bill able Time: 08:30:00 AM Vivian horn [facility] 2 11:20:30 Acute vaginiti s [id number] Completed 201904/05/2021 Acute vaginitis ;Practice ID: 0001 [facility] 2 11:20:25 Problem Notes None recorded. Procedures Surgical History Date Name Laterality Status Provider Name and Address Organization Details Recorded Time 9 Most Recent Bone Density completed [facility] 04/06/2021 11:27:42 8 Date of Last Pap Smear completed [facility] 04/06/2021 11:26:28 6 Date of Last Mammogram completed [facility] 04/06/2021 11:29:01 2 Colonoscopy completed [facility] 04/06/2021 11:32:36 8 bursectomy of hand completed [facility] 04/06/2021 11:33:02 7 Colonoscopy completed [facility] 04/06/2021 11:32:32 replacement of bilateral knee joints completed [facility] 04/06/2021 11:32:21 Colonoscopy completed [facility] 04/06/2021 11:32:40 Imaging Results None recorded. Procedure Notes None recorded. Medical Equipment None Reported. Allergies Allergen ID Allergen Name Allergen Category Reaction Reaction Severity Criticality Documentation Date Start Date Code Code System Note Provider Name and Address Organization Details Recorded Time 86651 azithromy scott medicatio n Not available Not available Not available 02/14/2020 78889 RxNorm Comme nt: Locat [facility]: [facility]; Not Available [facility] 0 14:14:49 40130 sulfameth oxazole medicatio n Not available Not available Not available 02/14/2020 98619 RxNorm Comme nt: Locat [facility]: [facility]; Not Available [facility] 0 14:14:49 62149 trimethop rim medicatio n Not available Not available Not available 02/14/2020 33979 RxNorm Comme nt: Locat ion: [facility]; Not Available [facility] 0 14:14:49 16274 erythromy scott medicatio n Not available Not available Not available 02/14/2020 4053 RxNorm Comme nt: Locat ion: [facility]; Not Available [facility] 0 14:14:49 77198 clindamyc in Not available Not available Not available Not available 02/14/2020 2582 RxNorm Comme nt: Locat ion: [facility]; Not Available [facility] 0 14:14:49 48053 Product containin g penicilli n (product) medicatio n Not available Not available Not available 02/14/2020 37549 8001 SNOMED Comme nt: Locat ion: [facility]; Not Available [facility] 0 14:14:49 Medications Name Sig Start Date Stop Date Status Note LastModified by Organization Details LastModified Time amoxicill in 500 mg capsule take 1 capsule by oral route every 12 hours 11/23 completed Prescrib ed Elsewher e: No Locat ion: Briseida vineet [facility] odify By: pool russell DateTime : 07/07/19 16 08:30:00 AM Not Available Not Available Not Available doxycycli ne hyclate 100 mg capsule TAKE 1 CAPSULE BY MOUTH TWICE DAILY active Not Available Not Available No t Available Toprol XL 25 mg tablet,ex tended release take 1 tablet by oral route every day active Prescrib ed Elsewher e: Yes Loca tion: Julissarima vineet [facility] odify By: shirley wheeler DateTime : 03/29/19 13 08:30:00 AM Not Available Not Available Not Available Celexa 10 mg tablet take 1 tablet by oral route every day 11/05 completed Prescrib ed Elsewher e: Yes Loca tion: Jose vineet [facility] odify By: shirley wheeler DateTime : 03/29/19 13 08:30:00 AM Not Available Not Available Not Available clindamyc in HCl 300 mg capsule take 1 capsule by oral route every 12 hours 03/15 completed Prescrib ed Elsewher e: No Locat ion: Jose manley [facility] odify By: anne ferreira DateTime : [...] Elsewher e: Yes Loca tion: Jose manley [facility] odify By: shirley wheeler DateTime : 03/29/19 13 08:30:00 AM Not Available Not Available Not Available levothyro xine 75 mcg tablet active Not Available Not Available Not Available Levoxyl 25 mcg tablet take 1 tablet by oral route every day 04/06 completed Prescrib ed Elsewher e: Yes Loca tion: Jose man[facility] odify By: paige Sood nter DateTime : 02/14/20 11 07:20:07 PM Not Available Not Available Not Available simvastat in 5 mg tablet take 1 tablet by oral route every day in the evening active Prescrib ed Elsewher e: Yes Loca tion: Jose manley [facility] odify By: paige Sood nter DateTime [...] Elsewher e: Yes Loca tion: Jose man[facility] odify By: shirley wheeler DateTime : 03/29/19 13 08:30:00 AM Not Available Not Available Not Available Vitamin C 500 mg capsule,e xtended release 03/29 completed Prescrib ed Elsewher e: Yes Loca tion: Jose manley [facility] odify By: shirley wheeler DateTime : 03/10/19 12 01:00:00 PM Not Available Not Available Not Available Vitamins and Minerals tablet 04/05 completed Prescrib ed Elsewher e: Yes Loca tion: Jose manley [facility] odify By: shirley wheeler DateTime : 03/29/19 13 08:30:00 AM Not Available Not Available Not Available Mucinex 600 mg tablet, extended release take 1 tablet by oral route every 12 hours as needed 04/05 completed Prescrib ed Elsewher e: Yes Loca tion: Jose manley [facility] odify By: shirley wheeler DateTime : 03/29/19 13 08:30:00 AM Not Available Not Available Not Available escitalop mahad 10 mg tablet active Not Available Not Available Not Available Lexapro 5 mg/5 mL oral solution take 10 millilit er by oral route every day 03/29 completed Prescrib ed Elsewher e: Yes Loca tion: Jose manley [facility] odify By: shirley wheeler DateTime : 03/10/19 12 01:00:00 PM Not Available Not Available Not Available Infuvite Adult 3300 unit-150 mcg/10 mL intraveno us solution 03/10 completed Prescrib ed Elsewher e: Yes Loca tion: Jose man[facility] odify By: gladys russell DateTime : 02/14/20 11 07:20:07 PM Not Available Not Available Not Available Calcio Aung 500 mg tablet 04/05 completed Prescrib ed Elsewher e: Yes Loca tion: Jose [facility] odify By: paige Sood ntmohinder DateTime : 02/14/20 11 07:20:07 PM Not Available Not Available Not Available Vitamin D3 10 mcg (400 unit) capsule active Prescrib ed Elsewher e: Yes Loca tion: Jose man[facility] odify By: shirley wheeler DateTime : 03/29/19 13 08:30:00 AM Not Available Not Available Not Available Mobic 7.5 mg/5 mL oral suspensio n take 5 millilit er by oral route every day active Prescrib ed Elsewher e: Yes Loca tion: Jose manley [facility] odify By: shirley wheeler DateTime : 03/29/19 13 08:30:00 AM Not Available Not Available Not Available B Complex 1.7 mg-20 mg-2 mg-1.2 mg/mL sublingua l liquid active Prescrib ed Elsewher e: Yes Loca tion: Jose [facility] odify By: paige tamez Encou nter DateTime : 02/14/20 11 07:20:07 PM Not Available Not Available Not Available CoQ-10 30 mg capsule active Prescrib ed Elsewher e: Yes Loca tion: Jose [facility] odify By: shirley wheeler DateTime : 03/29/19 13 08:30:00 AM Not Available Not Available Not Available Lipofen 50 mg capsule take 1 capsule by oral route every day with a meal active Prescrib ed Elsewher e: Yes Loca tion: Jose [facility] odify By: shirley wheeler DateTime : 03/29/19 13 08:30:00 AM Not Available Not Available Not Available Fish Oil 360 mg-1,200 mg capsule 11/23 completed Prescrib ed Elsewher e: Yes Loca tion: Jose manley [facility] odify By: pool Manley ncounter DateTime : 02/14/20 11 07:20:07 PM Not Available Not Available Not Available Zyrtec [address] by Topical route every USE ASS NEEDED WITH INTERCOU RSE active Prescrib ed Elsewher e: Yes Loca tion: Jose manley [facility] odify By: gladys Manley ncounter DateTime : 03/10/19 12 01:00:00 PM Not Available Not Available Not Available Vitals Date Recorded Body height Body mass index (BMI) Body weight Systolic And Diastolic Provider Name and Address Organization Details Last Updated DateTime 04/06/2021 165.1 cm 32.9 kg/m2 66682.29 g 140/80 mm[Hg] Vivian Soto [facility] 04/06/2021 11:25:03 Social History Question Answer Notes LastModified by Organizat ion Details LastModified Time Tobacco Smoking Status Never Smoker Vivian Soto [facility] 04/06/2021 11:25:19 Do You Have An [...] Or The Highest Degree You Have Received? [id number] Information not available 04/06/2021 Are There Any [...] not available 04/05/2021 Are you able to walk independently without assistance or assistive devices? YESASSIST Information not available 04/06/2021 Are you able to care for yourself independently? Yes Information not available 04/06/2021 What is your occupation? Retired Information not available 04/06/2021 Do you have difficulty dressing, bathing, grooming, or toileting? No Information not available 04/06/2021 What is your exercise level? Occasional Information not available 04/05/2021 Mental Status Question Answer Note LastModified by Organization D etails LastModified Time Do you feel stressed (tense, restless, nervous, or anxious, or unable to sleep at night)? [id number] Information not available 04/05/2021 Family History Relationship [...] Diagnosis SNOMED-CT Code Diagnosis ICD10 Code Diagnosis IMO Codes Diagnosis Note 25116 [facility] [address] [address] 04/06/2021 10:36:29 04/06/2021 12:23:17 Gynecologic examination 96497211 Z01.419 Take Calcium with Vitamin D 12-1500mg daily. Do monthly self breast exams. It is advised to get annual flu shot in the fall and she could obtain at [facility] or [facility] clinic. If you haven't received the Tdap [...] by PCPDexa OrderedRTO q2yrs or if any library manager problems ariseGenet ic screen discussedS TD declinedMo ther is in Hospice Health Concerns Section Related Observation LastModified by Organization Monica farnsworth LastModified Time None Recorded Concern Status LastModified by Organization Details LastModified Time None Recorded Advance Directives Directive N: Payers Insurance Date Sequence Insurance Name Policy Number Policy Suarez Covered Member ID Suarez Member ID Guarantor Name 12/26/2023 1 [employer] [id number] 1 Fidelina Jensen [id number] Fidelina Jensen Notes Date Note Type Note Provider Name and Address Organization Details Recorded Time 2 text/html 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 For vaginal bleeding, patient reportshistory of menopause having occurredandno history of post menopausal bleeding. For urinary symptoms, patient reportsno hematuria,no incontinence,no nocturia, andno urinary frequency. For vulva, patient reportsno genital lesionandno vulvar atrophy. For vagina, patient reportsnormal vaginal dischargeandno vaginal atrophy.Breast symptomsFor breast, patient reportsno breast lump,no nipple discharge, andno breast pain.Psychological symptomsFor sexual complaints, patient reportsno sexual complaints. For psychological symptoms, patient reportsno depressionandno anxiety.Preventative measuresFor preventive measures, patient reportsencourage regular mammograms starting age 40,encourage self breast examination,encourage regular exercise,encourage no tobacco use,needs to schedule mammogram,history of recent colonoscopy, andneeds to schedule bone density. Zoila Bridges, [facility]- [address], [place], [address], [facility] 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 Status 04/06/19 22 1 CLOSED Fetus Data First Name Last Name Admitted to NICU Weight (g) Sex Living Outcome Pediatric Complications Fetus ID Race Codes Race Delivery Type M [id number] Vaginal Delivery Kvng Calculation Initial Kvng Date [...] Domestic Partner Domestic Partner Phone Father Name Auto [employer] Driver Status 04/06/19 22 1 CLOSED Fetus Data First Name Last Name Admitted to NICU Weight (g) Sex Living Outcome Pediatric Complications Fetus ID Race Codes Race Delivery Type M [id number] Vaginal Delivery Kvng Calculation Initial Kvng Date [...] Post Complications Tubal Sterilization Discharge Date Comments 9 Discharge Information Feeding Method Contraceptive Method Maternal HG B and HCT Levels
--- OUTSIDE RECORDS SUMMARY | 2024-11-25 15:49 | XMS_ITS | Encounter Summary ---
Author Organization [facility] Address [address] [place] [address] Care Team Providers Care Overcaster Name Role Phone Cinthia Delgado MD Primary Care Provider [phone] Encounter Details Date Type Department Care Team (Late st Contact Info) Description 05/06/2022 Therapy Plan [facility] [place] [address] Cinthia Delgado MD [address] [place] [address] [address] [place] [address] Social History Tobacco Use Types [...] Info) Description 12/19/2024 11:00 AM CDT Treatment [facility] [address] [place] [address] None, Provider, documented as of this encounter Visit Diagnoses Diagnosis Senile osteoporosis- Primary Senile osteoporosis- Primary documented in this encounter Care Teams Overcaster Relationship Specialty Start Date End Date Cinthia Delgado MD PCP - General 06/01/10 documented as of this encounter
== END 2024-11-25 14:56 | disposition home or self-care (01) ==
PROVIDERS: PCP Internal Medicine; Visit Provider Internal Medicine
DX: M81.0 Age-related osteoporosis without current pathological fracture (principal)
CPT/HCPCS: 77080